=== PATIENT | female | born 1980 | race Caucasian/White ===

== ENCOUNTER → 2018-06-25 | Outpatient (CLI) | payer BC ==
[~2018-06-25] MED LIST: ALBU90OI INH; ALBU90OI6 INH; IBUP600 PO; NAPR500 PO; SULTRIDS PO
== END | disposition home or self-care (01) ==
LOC: LAB SHORT 08:20 → PLD 08:20
DX: N92.0 Excessive and frequent menstruation with regular cycle (principal)
CPT/HCPCS: 88305

== ENCOUNTER 2018-12-13 00:06 | Emergency (ER) | payer BC ==
[~2018-12-13] VITALS: Ht 170.2 cm; Wt 90.7 kg
[2018-12-13] MEDS ORDERED: CEPH500 PO (00:44)
== END 2018-12-13 01:17 | disposition home or self-care (01) ==
LOC: ER 00:06
DX: S60.851A Superficial foreign body of right wrist, initial encounter (principal); W45.8XXA Other foreign body or object entering through skin, initial encounter; Z91.048 Other nonmedicinal substance allergy status; Z88.0 Allergy status to penicillin; Z88.5 Allergy status to narcotic agent; F17.210 Nicotine dependence, cigarettes, uncomplicated
CPT/HCPCS: 10120; 90471; 90714; 99283-25

== ENCOUNTER → 2023-06-25 | Outpatient (CLI) | payer BC ==
[~2023-06-25] MED LIST changes: +CEPH500 PO; +Cipro500 MG PO; +Norco 5-325 Ta1 EACH PO; +ONDA4ODT MM
== END | disposition home or self-care (01) ==
LOC: LAB 15:57 → LAB SHORT 15:57
DX: R35.0 Frequency of micturition (principal)
CPT/HCPCS: 87086

== ENCOUNTER 2025-05-12 14:58 | Emergency (ER) | payer BC ==
[~2025-05-12] VITALS: Ht 170.2 cm; Wt 90.7 kg
[2025-05-12 15:25] VITALS: BP 149/102
== END 2025-05-12 16:55 | disposition home or self-care (01) ==
LOC: ER 14:58
DX: S93.431A Sprain of tibiofibular ligament of right ankle, initial encounter (principal); F17.210 Nicotine dependence, cigarettes, uncomplicated; Z88.0 Allergy status to penicillin; Z88.5 Allergy status to narcotic agent; Z91.048 Other nonmedicinal substance allergy status; X50.1XXA Overexertion from prolonged static or awkward postures, initial encounter
CPT/HCPCS: 73610; 73620; 99283-25